=== PATIENT | male | born 1990 | race Caucasian/White ===

== ENCOUNTER 2022-10-11 18:12 | Emergency (ER) | payer BC ==
[~2022-10-11] VITALS: Ht 180.3 cm; Wt 130.0 kg
[2022-10-11 18:16] VITALS: BP 183/98; PULSE 84; RESP 18; TEMP 97.8; O2SAT 97
== END 2022-10-11 20:49 | disposition home or self-care (01) ==
LOC: ER 18:14
DX: S61.211A Laceration without foreign body of left index finger without damage to nail, initial encounter (principal); G43.909 Migraine, unspecified, not intractable, without status migrainosus; I50.9 Heart failure, unspecified; E78.00 Pure hypercholesterolemia, unspecified; J44.9 Chronic obstructive pulmonary disease, unspecified; N18.9 Chronic kidney disease, unspecified; E03.9 Hypothyroidism, unspecified; M19.90 Unspecified osteoarthritis, unspecified site; W26.0XXA Contact with knife, initial encounter; Y93.89 Activity, other specified; Y92.89 Other specified places as the place of occurrence of the external cause; Y99.8 Other external cause status
CPT/HCPCS: 12001; 99282